=== PATIENT | female | born 1995 | race American Indian/Alaskan Native ===

== ENCOUNTER 2018-06-07 18:53 | Emergency (ER) | payer OTHER ==
[2018-06-07 21:01] VITALS: BP 125/68
[2018-06-07] MEDS ORDERED: FLEXERIL PO ONE (22:38)
[2018-06-07] MEDS ORDERED: PERCOCET 5/325 PO ONE (22:38)
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
== END 2018-06-07 23:35 | disposition home or self-care (01) ==
LOC: ED 18:53
DX: S50.12XA Contusion of left forearm, initial encounter (principal); V89.2XXA Person injured in unspecified motor-vehicle accident, traffic, initial encounter; Y93.89 Activity, other specified; Y92.488 Other paved roadways as the place of occurrence of the external cause; Y99.8 Other external cause status
CPT/HCPCS: 99283